=== PATIENT | female | born 1990 | race Caucasian/White ===

== ENCOUNTER 2019-08-21 05:45 | Inpatient (IN) | payer BC, SELFPAY ==
[2019-08-21] VITALS (75 sets, daily range): BP systolic 93–136; BP diastolic 40–90; PULSE 54–125; RESP 15; TEMP 36.2–37.2; O2SAT 78–100; BMI 26.6
[2019-08-21 06:34] LABS: Basophils Absolute Auto 0.1 K/mm3 (0.0-0.1); Basophils Percent Auto 0.4 % (0.2-1.2); Eosinophils Percent Auto 0.2 % (0-4.4); Hematocrit 35.1 % (37.0-47.0); Hemoglobin 11.1 g/dL (12.0-15.0); Immature Granulocyte Absolute 0.14 K/mm3 (0.00-0.031); Lymphocytes Absolute Auto 2.15 K/mm3 (0.9-3.2); Lymphocytes Percent Auto 15.9 % (18.3-44.2); Mean Corpuscular HGB Conc 31.6 g/dl (32-36); Mean Corpuscular Hemoglobin 27.3 pg (26-34); Mean Corpuscular Volume 86.5 fl (80-100); Mean Platelet Volume 11.9 fl (7.4-10.4); Monocytes Absolute Auto 0.8 K/mm3 (0.1-0.6); Monocytes Percent Auto 6.1 % (2.6-8.5); Neutrophils Absolute Auto 10.3 K/mm3 (1.3-6.7); Neutrophils Percent Auto 76.4 % (45.5-73.1); Platelet Count Result 190 k/mm3 (150-375); Red Blood Count 4.06 M/mm3 (4.2-5.4); Red Cell Distribution Width 12.5 % (11.5-14.5); White Blood Count 13.5 K/mm3 (4.5-10.0)
[2019-08-21] MEDS: OXYTOCIN 30 UNITS/NS 500 ML 30 UNITS/500 ML BAG IV CONT (06:35)
[2019-08-21] MEDS: LACTATED RINGERS 1,000 ML 125 ML IV CONT ×3 (06:35→11:10)
--- NOTE | 2019-08-21 06:44 | LDADM ---
This patient, Shara Marlow, was admitted to Labor/Delivery/Recovery 104 on 08/21/19 at 05:45. Plans for labor, pain management and were discussed with patient. Patient/family oriented to hospital policies and general routines including ID bracelet, bed and alarms, visiting hours, pain management, procedures, bathroom and other care routines, personal items, smoking policy, room service/diet and guest tray routines, security routines, and visiting hours. Patient/Family are encouraged to report perceived risks to care and to ask questions if they do not understand what they are told or what they should do. See OBIX for further documentation.
--- NOTE | 2019-08-21 08:48 | P.PNAN_ITS ---
Anes - Eval Pre Procedure Procedure: labor epidural Date/Time: 08/21/19 08:48 Surgeon: Marco Preop Diagnosis: Pain during labor Pre Op Diagnosis: Induction of Labor Patient Data Age: 29 Gender: F Height: 1.57 m Weight: 66 kg Last Vital Signs Temp 36.5 C 08/21/19 07:31 Pulse 79 08/21/19 08:46 BP 132/62 08/21/19 08:46 Pulse Ox 100 08/21/19 08:45 Allergies Allergy/AdvReac Type Severity Reaction Status Date / Time levofloxacin Allergy Unknown Palpitation Verified 08/20/19 15:34 s Home Medications Medication Instructions Recorded Confirmed Type PNV cmb#95-ferrous fumarate-FA 1 tablet PO DAILY 08/20/19 08/20/19 History [] Laboratory Tests 08/21/19 08/21/19 08/21/19 06:23 06:23 06:24 WBC 13.5 K/mm3 H K/mm3 (4.5-10.0) RBC 4.06 M/mm3 L M/mm3 (4.2-5.4) Hgb 11.1 g/dL L g/dL (12.0-15.0) Hct 35.1 % L % (37.0-47.0) MCV 86.5 fl fl (80-100) MCH 27.3 pg pg (26-34) MCHC 31.6 g/dl L g/dl (32-36) RDW 12.5 % % (11.5-14.5) Plt Count 190 k/mm3 k/mm3 (150-375) MPV 11.9 fl H fl (7.4-10.4) Immature Gran % (Auto) 1.0 % H % (0-0.5) Neut % (Auto) 76.4 % H % (45.5-73.1) Lymph % (Auto) 15.9 % L % (18.3-44.2) [place] % (Auto) 6.1 % % (2.6-8.5) Eos % (Auto) 0.2 % % (0-4.4) Baso % (Auto) 0.4 % % (0.2-1.2) Lymph # (Auto) 2.15 K/mm3 K/mm3 (0.9-3.2) [place] # (Auto) 0.8 K/mm3 H K/mm3 (0.1-0.6) Eos # (Auto) 0.0 K/mm3 K/mm3 (0-0.3) Baso # (Auto) 0.1 K/mm3 K/mm3 (0.0-0.1) Abs Immat Gran (auto) 0.14 K/mm3 H K/mm3 (0.00-0.031) Absolute Neuts (auto) 10.3 K/mm3 H K/mm3 (1.3-6.7) Absolute Nucleated RBC 0.0 K/mm3 K/mm3 (0.0-0.012) Nucleated RBC % 0.0 % % (0.0-0.2) RPR Pending Blood Type O Positive Antibody Screen Negative Patient hx anesthesia problems: none Family hx anesthesia problems: none [facility] Family History Family History (Updated 08/20/19 @ 15:37 by Miguel Brower RN) Mother Heart disease High cholesterol Hypertension History of blood clots Sibling High cholesterol Grandparent Heart disease Hypertension Cerebrovascular accident Social History Social History Smoking status: Never smoker Second hand tobacco smoke exposure: No Substance use: never Spiritual care concerns: No Exam Day of Procedure 08/21/19 08:48
[2019-08-21 08:54] LABS: Rapid Plasma Reagin Non-Reactive (NonReactive)
[2019-08-21] MEDS: SODIUM CHLORIDE 0.9% IV 300 ML 600 ML I-UTERINE (11:12)
--- NOTE | 2019-08-21 13:09 | P.PCNOB_ITS ---
OB - Delivery Note Procedure Delivery date: 08/21/19 Procedure: events: Labor Induction Intrapartal events: None Induction method: AROM and per pitocin protocol Delivery monitor: external FHT, external uterine, internal FHT and internal uterine Route of delivery: Laceration description: None Specimen: No Estimated blood loss (mL): 116 Anesthesia type: Epidural Disposition: floor [place] Baby Date of : 08/21/19 Time of : 12:58 Weeks of gestation at delivery: 39 gender: Male presentation: vertex position: Right Occiput Anterior Placenta delivery description: Spontaneous cord vessel description: 3 Vessels, Nuchal Cord, Loose, Reduced and Clamped/Cut score one minute: 9 score five minutes: 9
--- NOTE | 2019-08-21 13:14 | PM.OBDSVD ---
DS: Discharge Diagnosis Discharge Diagnosis (1) : Code(s): Z34.90 - Encounter for supervision of normal , unspecified, unspecified trimester Status: Acute OB - DS: Summary OB Procedures : None OB Procedures Intrapartum: Spontaneous Vag Delivery OB Procedures: : None Peripartum Data Delivery Method: Natural Vaginal Laceration description: None complications: none Status at Discharge Functional status at discharge: independent ambulation Overall status at discharge: patient is progressing back to baseline Time Spent with Patient Time attestation: Total time spent providing and/or coordinating discharge services: Time spent: Less than 30 minutes DS: Data Data Completed and Pending Labs on day of discharge: Labs from last 24 hours 08/21/19 08/21/19 08/21/19 06:24 06:23 06:23 WBC 13.5 H RBC 4.06 L Hgb 11.1 L Hct 35.1 L MCV 86.5 MCH 27.3 MCHC 31.6 L RDW 12.5 Plt Count 190 MPV 11.9 H Immature Gran % (Auto) 1.0 H Neut % (Auto) 76.4 H Lymph % (Auto) 15.9 L [place] % (Auto) 6.1 Eos % (Auto) 0.2 Baso % (Auto) 0.4 Lymph # (Auto) 2.15 [place] # (Auto) 0.8 H Eos # (Auto) 0.0 Baso # (Auto) 0.1 Abs Immat Gran (auto) 0.14 H Absolute Neuts (auto) 10.3 H Absolute Nucleated RBC 0.0 Nucleated RBC % 0.0 RPR Non-reactive Blood Type O Positive Antibody Screen Negative Discharge Plan Discharge Attending physician on discharge: Eunice Lara Discharging Clinician: Eunice Lara Anticipated Discharge Date/Time: 08/22/19 15:00 Patient Disposition: Home, Self-Care Activity: may shower and pelvic rest Diet: regular Discharge Instructions: Education: Mom and Baby Guide Given to: Mother Follow-Up: Call your delivering provider's office for an appointment to be seen in: 4 Weeks Mom and baby should come to the [facility] for the follow-up appointment. Appointment Date/Time: August at 10:00 am What to expect at your follow-up visit: Blood Pressure Check Physical Assessment Call [phone] if you are unable to keep your appointment time. BREAST CARE: 1. Wear a snug supportive bra. 2. For engorgement discomfort: Breast Feeding: A. Apply warm moist washcloths B. Express milk as needed to relieve engorgement C. Wear loose clothing 3. For sore nipples: A. Identify correct latch-on B. Apply warm moist washcloths before and after nursing C. Air dry nipples after nursing D. May apply Lansinoh cream to nipples EPISIOTOMY/PERINEAL CARE: 1. Until bleeding stops, use your sandra bottle after urinating 2. Change your pad frequently throughout the day 3. You may take sitz baths several times a day (fill your bathtub with warm water and soak for 20 minutes.) Do NOT bathe in the water 4. No tub baths until seen by your physician - You may shower ACTIVITY: 1. Rest as much as possible. 2. Do not exercise or lift anything heavier than your baby (such as laundry or other children.) 3. Avoid stairs or driving as much as possible. 4. Do not put anything into the vagina. No douching, tampons, or sexual activity until seen by physician. NOTIFY PHYSICIAN IF YOU HAVE ANY QUESTIONS OR IF ANY OF THE FOLLOWING SYMPTOMS OCCUR: 1. If your perineum becomes red, swollen, or more painful than what you have experienced in the hospital. 2. If your vaginal bleeding becomes foul smelling. 3. If your vaginal bleeding becomes more heavy than a period or if your bleeding changes from pink to bright red. However, you may pass an occasional walnut-sized clot once or twice for the first week . 4. If you experience a sharp, shooting pain in you calves. 5. If you discover a hard, reddened area on your breast or if you experience flu-like symptoms. DIET: 1. Ea
[2019-08-21] MEDS: OXYTOCIN 30 UNITS/NS 500 ML 30 UNITS/500 ML BAG 125 UNITS IV CONT (13:42)
[2019-08-21] MEDS: LORATADINE 10 MG TABLET PO (14:28)
[2019-08-21] MEDS: WITCH HAZEL 40 PADS 1 PAD TOPICAL (14:29)
[2019-08-21] MEDS: BENZOCAINE 20% AER SPR (*SP) 56 GM CAN 1 SPRAY TOPICAL (14:29)
--- NOTE | 2019-08-21 17:37 | OBPPTRN ---
Patient transferred to post room #295 via W/C @ [id number]. Support person present. Oriented to unit, room, information board, rooming in, admission packet and security measures. Patient verbalizes understanding.
[2019-08-21] MEDS: IBUPROFEN 600 MG TABLET PO (18:07)
[2019-08-22 05:34] LABS: Hematocrit 29.4 % (37.0-47.0); Hemoglobin 9.3 g/dL (12.0-15.0)
--- NOTE | 2019-08-22 07:25 | PM.OBPNVD ---
OB - PN: Subj Subjective Date/time seen: 08/22/19 07:25 Patient comments: no complaints baby status: doing well OB - PN: Obj Data Labs CBC & Chem 7: 08/22/19 04:51 Labs: Laboratory Results - last 24 hr 08/21/19 08/21/19 08/22/19 06:23 06:23 04:51 Hgb 9.3 L Hct 29.4 L RPR Non-reactive Blood Type O Positive Antibody Screen Negative OB - PN A/P Plan day: 1 Plan: routine care Time Spent With Patient Time: Total time spent is greater than 50% in coordination of care (as documented) at patient's floor/unit and/or counseling patient: Review of Systems Review of Systems: All systems reviewed & are unremarkable except as noted in HPI and below Exam Const: General: comfortable and alert Psych: Appearance: grossly normal Affect: normal affect Attitude: cooperative Judgement: Good judgement present (Psych)
[2019-08-22] MEDS: MULTIVIT/MIN/PREN/FOL AC/IRON TABLET 1 TAB PO (07:35)
[2019-08-22] MEDS: DOCUSATE SODIUM 100 MG CAPSULE PO (07:35)
[2019-08-22] MEDS: IBUPROFEN 600 MG TABLET PO (07:35)
[2019-08-22] MEDS: POLYSACCHARIDE IRON COMPLEX 150 MG CAPSULE PO (07:35)
[2019-08-22 08:30] VITALS: BP 127/90; PULSE 73; RESP 18; TEMP 36.6; O2SAT 98
--- NOTE | 2019-08-22 09:36 | WPDANLDPN2 ---
Anes-Prog Note L&D Date/Time: 08/22/19 09:36 Comfortable throughout: labor and delivery Neuraxial method: epidural Epidural/Spinal procedure site: clean & non-tender Neuro status: Neuro function grossly intact. Cardiovascular status: normal Respiratory status: normal Airway patency: baseline Mental status: baseline Post-Op hydration status: normal Vital Signs: Last Vital Signs Temp 37.2 C 08/21/19 20:20 Pulse 85 08/21/19 20:20 Resp 15 08/21/19 20:20 BP 112/67 08/21/19 20:20 Pulse Ox 97 08/21/19 12:52 I/O: Intake & Output 08/21/19 08/22/19 08/22/19 23:59 07:59 15:59 Output Total 98 Balance -98 Post-procedural complaints: none Patient feedback: Patient satisfied with anesthetic care.
--- NOTE | 2019-08-22 10:30 | PC.NURSE ---
Consult with pt., mother reports this to be 3rd child to breastfeed without difficulties or discomfort, last child 22 months. Mother wishes a 24 hour discharge. Mother is able to independently latch infant with appropriate positioning/alignment. She denies any nipple discomfort, is feeding as required and waking to feed if needed. has had several effective feedings in the past 24 hours, and is currently meeting outcomes for weight, output, jaundice and feeding frequencies. Mother states she feels confident to continue effective at home. Reviewed transition to breast milk, signs of adequate intake, and engorgement/relief. Instructed to call ICP if intake/output less than required. Reviewed regular medications mother is taking. Information provided per Jessica. Reviewed community resources on the [facility] website and in the Mom/Baby guide. Information on outpatient services provided. Mother has no further questions at this time.
--- NOTE | 2019-08-22 13:05 | PC.NURSE ---
8584-Patient viewed the discharge video Mother & Baby Care, The First Two Weeks . Patient was given the opportunity and encouraged to ask questions. Patient verbalized understanding of information shared and has been given the mother/baby guide for home reference.
[2019-08-23 10:26] VITALS: BP 128/86; PULSE 103; RESP 22
== END 2019-08-22 14:48 | disposition home or self-care (01) | DRG 807 ==
LOC: ANHLDR 13:15 → ANHOB2 16:22
PROVIDERS: Admitting Provider Obstetrics & Gynecology; Visit Provider Obstetrics & Gynecology
DX: O69.81X0 Labor and delivery complicated by cord around neck, without compression, not applicable or unspecified (principal); Z37.0 Single live birth; Z3A.39 39 weeks gestation of pregnancy; O36.8330 Maternal care for abnormalities of the fetal heart rate or rhythm, third trimester, not applicable or unspecified
CPT/HCPCS: 36415; 85014; 85018; 85025; 86592; 86850; 86900; 86901; A9270; J2590; J2795; J7030; J7120

== ENCOUNTER 2021-06-05 08:10 | Inpatient (IN) | payer OTHER, SELFPAY ==
[2021-06-05] VITALS (76 sets, daily range): BP systolic 96–142; BP diastolic 41–86; PULSE 25–125; TEMP 36.8–37; O2SAT 92–100
--- OUTSIDE RECORDS SUMMARY | 2021-06-05 10:40 | XMS_ITS | Encounter Summary ---
:1990 Author Care Team Providers Name Role Phone Rosario Cueto Primary Care Provider [phone] Reason for Visit None recorded. Assessment and Plan 1. Uterine size for dates discre pancy ? US, obstetric, follow-up Discussion Note: None recorded.Patient educational handouts: No information available. Plan of Care Reminders Provider Appointments Induction Belen Eldridge, 06/06/2021 CNM 5:00PM ? Blood Rosario azar CNM Pressure Check 06/16/2021 10:15AM Lab None ? ? recorded. Referral None ? ? recorded. Procedures None ? ? recorded. Surgeries None ? ? recorded. Imaging , [place] [facility], Follow-up 04/16/2021 Medications Name Start Date ? ? ? Medications Administered None recorded. Vitals None recorded. Results Lab Results None recorded. Allergies Code Code System Name Reaction Severity Onset 96126 RxNorm Levofloxacin ? ? ? Problems Name Status Onset Date Source ? Active 12/05
--- OUTSIDE RECORDS SUMMARY | 2021-06-05 10:40 | XMS_ITS | Encounter Summary ---
:1990 Author Care Team Providers Name Role Phone Rosario Cueto Primary Care Provider [phone] Reason for Visit None recorded. Assessment and Plan 1. Reduced movement ? non-stress test Discussion Note: None recorded.Patient educational handouts: No information available. Plan of Care Reminders Provider Appointments Induction Belen Eldridge, 06/06/2021 CNM 5:00PM ? Blood Rosario azar CNM Pressure Check 06/16/2021 10:15AM Lab None ? ? recorded. Referral None ? ? recorded. Procedures None ? ? recorded. Surgeries None ? ? recorded. Imaging Non-stress [place] Test 06/02/2021 Medications Name Start Date ? ? ? Medications Administered None recorded. Vitals None recorded. Results Lab Results None recorded. Allergies Code Code System Name Reaction Severity Onset 71916 RxNorm Levofloxacin ? ? ? Problems Name Status Onset Date Source ? Active 12/16/2020 ?
--- OUTSIDE RECORDS SUMMARY | 2021-06-05 10:40 | XMS_ITS ---
:1990 Author Care Team Providers Name Role Phone NELY MAO Primary Care Provider [phone] Allergies Code Code System Name Reaction Severity Status Onset 17435 RxNorm Levofloxacin ? ? Active ? Medications Name Status Start Date Stop Date ? ? azithromycin 250 mg tablet Completed ? 06/26 Jennifer 0.35 mg tablet Completed 11/02/2017 01/25/2019 take 1 tablet by oral route every day ID NOW COVID-19 Test Kit Completed ? 021 TEST DIRECTED Macrobid 100 mg capsule Completed ? 04/10/19 Take 1 capsule every 12 hours by oral route. methylprednisolone 4 mg tablets in Completed ? 06/27/2019 a dose pack Minastrin 24 Fe 1 mg-20 mcg (24)/75 mg (4) chewable tablet Compl eted 11/06/2013 02/24/2017 CHEW 1 TABLET BY ORAL ROUTE ONCE DAILY ondansetron 4 mg disintegrating Completed ? 04/10/2021 tablet Zofran 4 mg tablet Active 03/29/2019 Not available Take one tablet by oral route every 6-8 hours as needed for kasi sea Active ? Not available 19 29 mg iron-1 mg chewable tablet Completed ? 11/19/2020 chew 1 tablet by oral route every day promethazine 12.5 mg tablet Completed 03/09/201710/06 take 1 tablet by oral route 4 times every day before meals and at bedtime Seasonique 0.15 mg-30 mcg (84)/10 mcg(7) tablets,3 month dos e pack Completed 12/16/2011 12/27/2012 take 1 tablet by oral route every day Triveen-Duo DHA 29 mg-1 mg-400 mg oral pack Completed 11/0506/23/2011 take 2 by Oral route every day
--- OUTSIDE RECORDS SUMMARY | 2021-06-05 10:40 | XMS_ITS | Encounter Summary ---
:1990 Author Care Team Providers Name Role Phone Rosario Cueto Primary Care Provider [phone] Reason for Visit None recorded. Assessment and [...] Surgeries None ? ? recorded. Imaging , [place] Obstetric, Follow-up 06/02/2021 Medications Name Start Date ? ? ? Medications Administered None recorded. Vitals None recorded. Results Lab Results None recorded. Allergies Code Code System Name Reaction Severity Onset 75821 RxNorm Levofloxacin ? ? ? Problems Name Status Onset Date Source ? Active 12/16
--- OUTSIDE RECORDS SUMMARY | 2021-06-05 10:40 | XMS_ITS | Encounter Summary ---
:1990 Author Care Team Providers Name Role Phone Rosario Cueto Primary Care Provider [phone] Reason for Visit OB visit OB [id number] EDC 06/27/2021 LMP 09/20/2020 Assessment and Plan Assessment Note Patient is __30_weeks . Dis cussed plan. 1. Routine care Discussion Note: None recorded.Patient educational handouts: No information available. Plan of Care Reminders Provider Appointments Induction Belen Eldridge, 06/06/2021 CNM 5:00PM ? Blood Rosario azar CNM Pressure Check 06/16/2021 10:15AM Lab None ? ? recorded. Referral None ? ? recorded. Procedures None ? ? recorded. Surgeries None ? ? recorded. Imaging None ? ? recorded. Medications Name Start Date ? ? ? Medications Administered None recorded. Vitals Height Weight BMI Blood Pressure 5 ft 2.5 in 143 lbs 25.7 kg/m2 133/81 mm[Hg] Results Lab Results None recorded. Allergies Code Code System Name Reaction Severity Onset 55702 RxNorm Levofloxacin ? ? ?
--- OUTSIDE RECORDS SUMMARY | 2021-06-05 10:40 | XMS_ITS | Encounter Summary ---
:1990 Author Care Team Providers Name Role Phone Rosario Cueto Primary Care Provider [phone] Reason for Visit None recorded. Assessment and [...] ? recorded. Imaging Non-stress [place] Test 06/03/2021 Medications Name Start Date ? ? ? Medications Administered None recorded. Vitals None recorded. Results Lab Results None recorded. Allergies Code Code System Name Reaction Severity Onset 87353 RxNorm Levofloxacin ? ? ? Problems Name Status Onset Date Source ? Active 12/16/2020 ?
--- OUTSIDE RECORDS SUMMARY | 2021-06-05 10:40 | XMS_ITS | Encounter Summary ---
:1990 Author Care Team Providers Name Role Phone Rosario Cueto Primary Care Provider [phone] Reason for Visit None recorded. Assessment and Plan 1. Uterine size for dates discre pancy Discussion Note: None recorded.Patient educational handouts: No [...] Code Code System Name Reaction Severity Onset 96953 RxNorm Levofloxacin ? ? ? Problems Name Status Onset Date Source ? Active 12/16/2020 ? Vomiting of Active ? ? Uterine Size for Dates Discrepancy Active ?
--- OUTSIDE RECORDS SUMMARY | 2021-06-05 10:40 | XMS_ITS | Encounter Summary ---
:1990 Author Care Team Providers Name Role Phone Rosario Rom Primary Care Provider [phone] Reason for Visit OB visit Assessment and Plan 1. Routine care Discussion Note: None recorded.Patient [...] BMI Blood Pressure 5 ft 2.5 in 146 lbs 26.3 kg/m2 126/83 mm[Hg] Results Lab Results None recorded. Allergies Code Code System Name Reaction Severity Onset 74874 RxNorm Levofloxacin ? ? ? Problems Name Status Onset Date Source ? Active 12/16/2020 ?
--- OUTSIDE RECORDS SUMMARY | 2021-06-05 10:40 | XMS_ITS | Encounter Summary ---
:1990 Author Care Team Providers Name Role Phone Rosario Cueto Primary Care Provider [phone] Reason for Visit OB visit Assessment and Plan 1. Uterine size for dates discre pancy 2. History of pre-eclampsia Discussion Note: None recorded.Patient educational handouts: No [...] BMI Blood Pressure 5 ft 2.5 in 149 lbs 26.8 kg/m2 127/78 mm[Hg] Results Lab Results None recorded. Allergies Code Code System Name Reaction Severity Onset 86440 RxNorm Levofloxacin ? ? ? Problems Name Status Onset Date Source ?
--- OUTSIDE RECORDS SUMMARY | 2021-06-05 10:40 | XMS_ITS | Encounter Summary ---
:1990 Author Care Team Providers Name Role Phone Rosario Cueto Primary Care Provider [phone] Reason for Visit None recorded. Assessment and Plan 1. condition affecting obs tetrical care of mother ? US, obstetric, biophysical profile + non-stress test Discussion Note: None recorded.Patient educational handouts: No information available. Plan of Care Reminders Provider Appointments Induction Belen Eldridge, 06/06/2021 CNM 5:00PM ? Blood Pressure Mone Cueto CNM Check 06/16/2021 10:15AM Lab None recorded. ? ? Referral None recorded. ? ? Procedures None recorded. ? ? Surgeries None recorded. ? ? Imaging US, Obstetric, [facility] Biophysical Profile + 06/03/2021 Non-stress Test Medications Name Start Date ? ? ? Medications Administered None recorded. Vitals None recorded. Results Lab Results None recorded. Allergies Code Code System Name Reaction Severity Onset 45996 RxNorm Levofloxacin ? ? ? Problems Name Statu
--- OUTSIDE RECORDS SUMMARY | 2021-06-05 10:40 | XMS_ITS | Encounter Summary ---
:1990 Author Care Team Providers Name Role Phone Rosario Rom Primary Care Provider [phone] Reason for Visit OB visit Assessment and Plan 1. History of pre-eclampsia 2. Routine care Discussion Note: None recorded.Patient educational [...] BMI Blood Pressure 5 ft 2.5 in 137 lbs 24.7 kg/m2 (1) 150/78 mm[H g] (2) 132/80 mm[Hg ] Results Lab Results None recorded. Allergies Code Code System Name Reaction Severity Onset 38538 RxNorm Levofloxacin ? ? ? Problems Name Status Onset Date
--- OUTSIDE RECORDS SUMMARY | 2021-06-05 10:40 | XMS_ITS | Encounter Summary ---
:1990 Author Care Team Providers Name Role Phone Rosario Rom Primary Care Provider [phone] Reason for Visit OB visit Assessment and [...] BMI Blood Pressure 5 ft 2.5 in 145 lbs 26.1 kg/m2 121/78 mm[Hg] Results Lab Results None recorded. Allergies Code Code System Name Reaction Severity Onset 51415 RxNorm Levofloxacin ? ? ? Problems Name Status Onset Date Source ? Active 12/16/2020 ?
--- OUTSIDE RECORDS SUMMARY | 2021-06-05 10:40 | XMS_ITS | Encounter Summary ---
:1990 Author Care Team Providers Name Role Phone Rosario Cueto Primary Care Provider [phone] Reason for Visit OB visit 28w6d Assessment and Plan 1. Routine care Discussion [...] ft 2.5 in 143 lbs 25.7 kg/m2 133/85 mm[Hg] Results Lab Results None recorded. Allergies Code Code System Name Reaction Severity Onset 50199 RxNorm Levofloxacin ? ? ? Problems Name Status Onset Date Source ? [place]
--- NOTE | 2021-06-05 13:03 | LDADM ---
This patient, Shara Marlow, was admitted to Labor/Delivery/Recovery 108 on 06/05/21 at 08:10. Plans for labor, pain management and were discussed with patient. Patient/family oriented to hospital policies and general routines including ID bracelet, bed and alarms, visiting hours, pain management, procedures, bathroom and other care routines, personal items, smoking policy, room service/diet and guest tray routines, security routines, and visiting hours. Patient/Family are encouraged to report perceived risks to care and to ask questions if they do not understand what they are told or what they should do. See OBIX for further documentation.
[2021-06-05 13:15] LABS: Basophils Percent Auto 0.3 % (0.2-1.2); Eosinophils Percent Auto 0.1 % (0-4.4); Hematocrit 32.1 % (37.0-47.0); Hemoglobin 10.2 g/dL (12.0-15.0); Immature Granulocyte Absolute 0.09 K/mm3 (0.00-0.031); Immature Granulocyte Percent A 0.6 % (0-0.5); Lymphocytes Absolute Auto 2.54 K/mm3 (0.9-3.2); Lymphocytes Percent Auto 16.5 % (18.3-44.2); Mean Corpuscular HGB Conc 31.8 g/dl (32-36); Mean Corpuscular Hemoglobin 26.9 pg (26-34); Mean Corpuscular Volume 84.7 fl (80-100); Mean Platelet Volume 11.5 fl (7.4-10.4); Monocytes Absolute Auto 0.7 K/mm3 (0.1-0.6); Monocytes Percent Auto 4.3 % (2.6-8.5); Neutrophils Absolute Auto 12.1 K/mm3 (1.3-6.7); Neutrophils Percent Auto 78.2 % (45.5-73.1); Platelet Count Result 230 k/mm3 (150-375); Red Blood Count 3.79 M/mm3 (4.2-5.4); Red Cell Distribution Width 13.7 % (11.5-14.5); White Blood Count 15.4 K/mm3 (4.5-10.0)
[2021-06-05 13:34] LABS: Alanine Aminotransferase 12 U/L (4-35); Albumin Level 3.7 g/dL (3.5-5.1); Alkaline Phosphatase 176 U/L (38-126); Anion Gap 7 mmol/L (8-16); Aspartate Amino Transferase 24 U/L (14-36); Bilirubin,Total 0.5 mg/dL (0.2-1.3); Blood Urea Nitrogen 3 mg/dL (7-17); Calcium 8.4 mg/dL (8.4-10.2); Carbon Dioxide 22 mmol/L (22-30); Chloride 105 mmol/L (98-107); Estimated Glomerular Filt Rate > 60; Glucose 84 mg/dL (65-110); Potassium 3.6 mmol/L (3.4-5.0); Sodium 134 mmol/L (137-145); Uric Acid 3.4 mg/dL (2.5-7.5)
--- NOTE | 2021-06-05 15:17 | WPDANESEPP ---
Anes - Eval Pre Procedure Procedure: labor epidural Date/Time: 06/05/21 15:17 Surgeon: amanda Preop Diagnosis: pain during labor Pre Op Diagnosis: Induction of Labor Patient Data Age: 31 Gender: F Height: Weight: Last Vital Signs Temp 36.8 C 06/05/21 12:00 Pulse 99 06/05/21 11:53 BP 116/72 06/05/21 11:53 Pulse Ox 98 06/05/21 12:57 Allergies Allergy/AdvReac Type Severity Reaction Status Date / Time levofloxacin Allergy Unknown Palpitation Verified 08/20/19 15:34 s Home Medications Medication Instructions Recorded Confirmed Type PNV cmb#95-ferrous fumarate-FA 1 tablet PO DAILY 08/20/19 06/05/21 History [] Laboratory Tests 06/05/21 06/05/21 06/05/21 13:01 13:01 13:01 WBC 15.4 K/mm3 H K/mm3 (4.5-10.0) RBC 3.79 M/mm3 L M/mm3 (4.2-5.4) Hgb 10.2 g/dL L g/dL (12.0-15.0) Hct 32.1 % L % (37.0-47.0) MCV 84.7 fl fl (80-100) MCH 26.9 pg pg (26-34) MCHC 31.8 g/dl L g/dl (32-36) RDW 13.7 % % (11.5-14.5) Plt Count 230 k/mm3 k/mm3 (150-375) MPV 11.5 fl H fl (7.4-10.4) Immature Gran % (Auto) 0.6 % H % (0-0.5) Neut % (Auto) 78.2 % H % (45.5-73.1) Lymph % (Auto) 16.5 % L % (18.3-44.2) [place] % (Auto) 4.3 % % (2.6-8.5) Eos % (Auto) 0.1 % % (0-4.4) Baso % (Auto) 0.3 % % (0.2-1.2) Lymph # (Auto) 2.54 K/mm3 K/mm3 (0.9-3.2) [place] # (Auto) 0.7 K/mm3 H K/mm3 (0.1-0.6) Eos # (Auto) 0.0 K/mm3 K/mm3 (0-0.3) Baso # (Auto) 0.0 K/mm3 K/mm3 (0.0-0.1) Abs Immat Gran (auto) 0.09 K/mm3 H K/mm3 (0.00-0.031) Absolute Neuts (auto) 12.1 K/mm3 H K/mm3 (1.3-6.7) Absolute Nucleated RBC 0.0 K/mm3 K/mm3 (0.0-0.012) Nucleated RBC % 0.0 % % (0.0-0.2) Sodium Potassium Chloride Carbon Dioxide Anion Gap BUN Creatinine Estim Creat Clear Calc Estimated GFR Glucose Uric Acid Calcium Total Bilirubin AST ALT Alkaline Phosphatase Total Protein Albumin RPR Pending Blood Type O Positive Antibody Screen Negative 06/05/21 13:01 WBC RBC Hgb Hct MCV MCH MCHC RDW Plt Count MPV Immature Gran % (Auto) Neut % (Auto) Lymph % (Auto) [place] % (Auto) Eos % (Auto) Baso % (Auto) Lymph # (Auto) [place] # (Auto) Eos # (Auto) Baso # (Auto) Abs Immat Gran (auto) Absolute Neuts (auto) Absolute Nucleated RBC Nucleated RBC % Sodium 134 mmol/L L mmol/L (137-145) Potassium 3.6 mmol/L mmol/L (3.4-5.0) Chloride 105 mmol/L mmol/L (98-107) Carbon Dioxide 22 mmol/L mmol/L (22-30) Anion Gap 7 mmol/L L mmol/L (8-16) BUN 3 mg/dL L mg/dL (7-17) Creatinine 0.40 mg/dL L mg/dL (0.7-1.0) Estim Creat Clear Calc Not Reportable Estimated GFR > 60 (59 - ) Glucose 84 mg/dL mg/dL (65-110) Uric Acid 3.4 mg/dL mg/dL (2.5-7.5) Calcium 8.4 mg/dL mg/dL (8.4-10.2) Total Bilirubin 0.5 mg/dL mg/dL (0.2-1.3) AST 24 U/L U/L (14-36) ALT 12 U/L U/L (4-35) Alkaline Phosphatase 176 U/L H U/L (38-126) Total Protein 8.0 g/dL g/dL (6.3-8.2) Albumin 3.7 g/dL g/dL (3.5-5.1) RPR Blood Type Antibody Screen Patient hx anesthesia problems: none Family hx anesthesia problems: none Results Review: All pre-operative results and documents have been reviewed as part of the pre-operative evaluation. [facility] Family History Family History (Updated 06/03/21 @ 12:43 by Oanh
--- NOTE | 2021-06-05 16:30 | WPDOBADMIT ---
Obstetrics - Admit Note Admission Note: record reviewed. No pertinent additions to the history and/or any subsequent changes in the physical findings that are not consistent with the expected course of the were found. IOL, nonreassuring heart tones, recurretn variables, hx gestational HTN, SVE 1/70/-2 AROM minimal amount of clear odorless fluid Additions to the history and/or subsequent changes in the physical findings follow. None.
[2021-06-05] MEDS: LACTATED RINGERS 1,000 ML 125 ML IV CONT (18:15)
[2021-06-05] MEDS: OXYTOCIN 30 UNITS/NS 500 ML 30 UNITS/500 ML BAG IV CONT (18:15)
[2021-06-06] VITALS (66 sets, daily range): BP systolic 85–129; BP diastolic 37–92; PULSE 25–125; RESP 16; TEMP 36–37.4; O2SAT 78–100
--- NOTE | 2021-06-06 05:18 | PM.OBPRVD ---
OB - Delivery Note Procedure Delivery date: 06/06/21 Procedure: vaginal delivery Events: Gestational Hypertension and Other (non reassuring FHR) Induction method: None, AROM and Per Pitocin Protocol Delivery monitor: External FHT, External Uterine and Internal Uterine Route of delivery: Laceration Description: None Specimen: Yes Quantitative Blood Loss (ml): 30 Anesthesia type: Epidural Disposition: Floor [place] Baby Date of : 06/06/21 Time of : 05:05 Weeks of gestation at delivery: 37 gender: Female presentation: vertex position: Left Occiput Anterior Placenta delivery description: Spontaneous Cord Vessel Description: 3 Vessels, Nuchal Cord, Loose, Reduced, Clamped/Cut and Delayed Cord Clamping score one minute: 9 score five minutes: 9 Narrative: mother and baby skin to skin in stable condition
[2021-06-06] MEDS: WITCH HAZEL 40 PADS 1 PAD TOPICAL (07:09)
[2021-06-06] MEDS: IBUPROFEN 600 MG TABLET PO ×2 (07:09→10:49)
[2021-06-06] MEDS: MULTIVIT/MIN/PREN/FOL AC/IRON TABLET 1 TAB PO (10:48)
--- NOTE | 2021-06-06 12:07 | OBPPTRN ---
0830-Patient transferred to post room #285 via wheelchair. Support person present. Oriented to unit, room, information board, rooming in, admission packet and security measures. Patient verbalizes understanding.
[2021-06-07 00:10] VITALS: BP 117/73; PULSE 79; RESP 16; TEMP 36.1; O2SAT 100
[2021-06-07 04:10] VITALS: BP 111/62; PULSE 70; RESP 16; TEMP 36.9; O2SAT 100
[2021-06-07 04:55] LABS: Hematocrit 28.2 % (37.0-47.0); Hemoglobin 8.9 g/dL (12.0-15.0)
--- NOTE | 2021-06-07 07:41 | PM.OBPNVD ---
OB - PN: Subj Subjective Date/time seen: 06/07/21 07:41 Patient comments: no complaints baby status: doing well OB - PN: Obj Data Labs CBC & Chem 7: 06/07/21 04:17 06/05/21 13:01 Labs: Laboratory Results - last 24 hr 06/07/21 04:17 Hgb 8.9 L Hct 28.2 L OB - PN A/P Plan day: 1 Plan: routine care and discharge home Time Spent With Patient Time: Total time spent is greater than 50% in coordination of care (as documented) at patient's floor/unit and/or counseling patient: Review of Systems Review of Systems: All systems reviewed & are unremarkable except as noted in HPI and below Exam Const: General: cooperative, healthy appearing, comfortable and no acute distress
--- NOTE | 2021-06-07 07:42 | PM.OBDSVD ---
DS: Admitting Diagnosis Discharge Date 06/07/21 Admitting Diagnosis Non reassuring heart rate, GHTN OB - DS: Summary OB Procedures : NST OB Procedures Intrapartum: Spontaneous Vag Delivery OB Procedures: : None Time Spent with Patient Time attestation: Total time spent providing and/or coordinating discharge services: DS: Data Data Completed and Pending Labs on day of discharge: Labs from last 24 hours 06/07/21 04:17 Hgb 8.9 L Hct 28.2 L Discharge Plan Discharge Attending physician on discharge: Berto Chew Discharging Clinician: Belen Eldridge Patient Disposition: Home, Self-Care Activity: pelvic rest Diet: regular Patient Instructions: Antibiotic Form Stand Alone Forms: General Discharge Information Follow-up/Referrals: Belen Eldridge CNM [Primary Care Provider] - 4 Weeks Discharge Medications: Continued PNV cmb#95-ferrous fumarate-FA [] 28 mg iron- 800 mcg Tablet 1 tablet PO DAILY RF: 0 Date of admission: 06/05/21 08:10 Primary Care Provider: Belen Eldridge Admitting Provider: Berto Chew Attending physician on admission: Berto Chew Condition: Stable
[2021-06-07 08:00] VITALS: BP 108/73; PULSE 88; RESP 16; TEMP 36.6; O2SAT 100
[2021-06-07] MEDS: IBUPROFEN 600 MG TABLET PO (08:57)
[2021-06-07] MEDS: MULTIVIT/MIN/PREN/FOL AC/IRON TABLET 1 TAB PO (08:58)
[2021-06-07] MEDS: DOCUSATE SODIUM 100 MG CAPSULE PO ×2 (08:58→17:56)
[2021-06-07] MEDS: POLYSACCHARIDE IRON COMPLEX 150 MG CAPSULE PO ×2 (08:59→17:55)
[2021-06-07 12:30] VITALS: BP 120/76; PULSE 84; RESP 16; TEMP 36.7; O2SAT 100
[2021-06-07 13:03] LABS: Rapid Plasma Reagin Non-Reactive (NonReactive)
[2021-06-07 16:25] VITALS: BP 122/78; PULSE 82; RESP 16; TEMP 36.8; O2SAT 99
[2021-06-07 18:45] VITALS: BP 124/68; PULSE 82; RESP 16; TEMP 36.3; O2SAT 100
--- NOTE | 2021-06-08 07:39 | PM.OBPNVD ---
OB - PN: Subj Subjective Date/time seen: 06/08/21 07:39 Patient comments: no complaints, pain well controlled, incisional pain, tolerating diet and flatus present OB - PN: Obj Data Labs CBC & Chem 7: 06/07/21 04:17 06/05/21 13:01 Labs: Laboratory Results - last 24 hr 06/05/21 13:01 RPR Non-reactive OB - PN A/P Plan day: 1 Plan: routine care Comments: No problems, routine care Time Spent With Patient Time: Total time spent is greater than 50% in coordination of care (as documented) at patient's floor/unit and/or counseling patient: Exam Const: General: comfortable, no acute distress and alert Resp: Effort & Inspection: normal respiratory effort Auscultation: no crackles, no rales and no rhonchi Cardio: Rate: regular rate Heart sounds: no click, no murmurs and no rubs GI: Inspection: non-distended GI Palp: No Tenderness to palpation present (GI) Auscultation: normal bowel sounds Other: Incision - CDI Extrem: General: normal to inspection, no pedal edema and no calf tenderness
[2021-06-08 07:45] VITALS: BP 113/66; PULSE 73; RESP 16; TEMP 36.3; O2SAT 100
[2021-06-08] MEDS: POLYSACCHARIDE IRON COMPLEX 150 MG CAPSULE PO (08:19)
[2021-06-08] MEDS: DOCUSATE SODIUM 100 MG CAPSULE PO (08:19)
[2021-06-08] MEDS: MULTIVIT/MIN/PREN/FOL AC/IRON TABLET 1 TAB PO (08:19)
--- NOTE | 2021-06-08 11:04 | PC.NURSE ---
Patient was given the opportunity to view the discharge video Mother & Baby Care, The First Two Weeks and to ask questions. Patient declined viewing the video and has been given the mother/baby guide for home reference.
--- NOTE | 2021-06-08 12:24 | PC.NURSE ---
[id number] Introductions were made and mother led the conversation with regards to her experience feeding her baby and she shares her past experience and knowledge with and it is all appropriate. has had appropriate feedings in the past 24 hours and meets the outcomes for weight, output and jaundice. Mother states she feels confident to continue effectively her at home. Reviewed production of human milk, transition of milk, signs of adequate intake and engorgement prevention/relief and when to call the care provider using the mom and baby guide. Reviewed community resources and outpatient services as listed in the mom and baby guide/[facility] website. Reinforced watching for feeding cues with responsive feeding and how to stimulate infant to initiate feeding three hours from the start of the last feeding. Mother voiced understanding of information shared. Reported to primary RN.
[2021-06-09 10:27] VITALS: BP 128/71; PULSE 84; RESP 16; TEMP 37.3; O2SAT 99
--- NOTE | 2021-06-09 18:10 | P.DS_ITS ---
DS: Admitting Diagnosis Discharge Date 06/08/21 Admitting Diagnosis IOL OB - DS: Summary OB Procedures : PIH Mgmt OB Procedures Intrapartum: Spontaneous Vag Delivery OB Procedures: : None Time Spent with Patient Time attestation: Total time spent providing and/or coordinating discharge services: DS: Data Data Completed and Pending Completed studies during hospitalization: Pending at discharge 06/08/21 08:11 Surgical [PTH] Routine Discharge Plan Discharge Attending physician on discharge: Berto Chew Consulting providers: Belen Eldridge Discharging Clinician: Belen Eldridge Patient Disposition: Home, Self-Care Activity: pelvic rest Diet: regular Discharge Instructions: Education: Mom and Baby Guide Given to: Mother Follow-Up: Call your delivering provider's office for an appointment to be seen in: 1 Week Mom and baby should come to the [facility] for the follow-up appointment. Appointment Date/Time: June 09, 2021 at 10:00 am What to expect at your follow-up visit: Call [phone] if you are unable to keep your appointment time. BREAST CARE: * Wear a snug supportive bra. * For engorgement discomfort: Breast Feeding: * Apply warm moist washcloths * Express milk as needed to relieve engorgement * Wear loose clothing * For sore nipples: * Identify correct latch-on * Apply warm moist washcloths before and after nursing * Air dry nipples after nursing * May apply Lansinoh cream to nipples PERINEAL CARE: * Until bleeding stops, use your sandra bottle after urinating * Change your pad frequently throughout the day * You may take sitz baths several times a day (fill your bathtub with warm water and soak for 20 minutes.) Do NOT bathe in the water * No tub baths until seen by your physician - You may shower ACTIVITY: * Rest as much as possible. * Do not exercise or lift anything heavier than your baby (such as laundry or other children.) * Avoid stairs or driving as much as possible. * Do not put anything into the vagina. No douching, tampons, or sexual activity until seen by physician. NOTIFY PHYSICIAN IF YOU HAVE ANY QUESTIONS OR IF ANY OF THE FOLLOWING SYMPTOMS OCCUR: * If your vaginal bleeding becomes foul smelling. * If your vaginal bleeding becomes more heavy than a period or if your bleeding changes from pink to bright red. However, you may pass an occasional walnut- sized clot once or twice for the first week . * If you experience a sharp, shooting pain in you calves. * If you discover a hard, reddened area on your breast or if you experience flu- like symptoms. DIET: * Eat regular, well-balanced meals. * Drink plenty of fluids daily. If , drink to thirst. Stand Alone Forms: General Discharge Information Follow-up/Referrals: Belen Eldridge CNM [Primary Care Provider] - 4 Weeks Discharge Medications: Continued PNV cmb#95-ferrous fumarate-FA [] 28 mg iron- 800 mcg Tablet 1 tablet PO DAILY RF: 0 Date of admission: 06/05/21 08:10 Primary Care Provider: Belen Eldridge Admitting Provider: Berto Chew Attending physician on admission: Berto Chew Condition: Stable
== END 2021-06-08 10:59 | disposition home or self-care (01) | DRG 807 ==
LOC: ANHLDR 10:39 → ANHOB2 06-06 11:00
PROVIDERS: Admitting Provider Obstetrics & Gynecology; PCP Advanced Practice Midwife; Visit Provider Obstetrics & Gynecology
DX: O13.4 Gestational [pregnancy-induced] hypertension without significant proteinuria, complicating childbirth (principal); Z37.0 Single live birth; Z3A.37 37 weeks gestation of pregnancy; O36.8330 Maternal care for abnormalities of the fetal heart rate or rhythm, third trimester, not applicable or unspecified; O69.81X0 Labor and delivery complicated by cord around neck, without compression, not applicable or unspecified
CPT/HCPCS: 36415; 76815; 76819; 80053; 84550; 85014; 85018; 85025; 86592; 86850; 86900; 86901; 88307; A9270; J2590; J2795; J7120

== ENCOUNTER 2021-06-05 08:10 | Outpatient (RCR) | payer OTHER, SELFPAY ==
[2021-06-02 12:26] VITALS: BP 131/88; PULSE 86
--- NOTE | ~2021-06-05 | US_ITS ---
EXAMINATION: US OB limited w BPP DATE: 06/05/2021 10:01 INDICATION: Variable cardiac decelerations. Assess amniotic fluid index and biophysical profile . TECHNIQUE: Real-time pelvic ultrasound was performed. The interpreting radiologist was not present fo r the study. COMPARISON: None. FINDINGS: There is a single living fetus in vertex presentation. The placenta is anterior. heart rate is 153 beats per minute (bpm). Normal amniotic fluid index measuring 4.8 cm (5th%-95%: 7.7-24.9 cm at 3 6 weeks estimated gestational age) Biophysical profile performed by the technologist: breathing (30 sec sustained breathing in 30 minutes): 2 out of 2 movement (3 gross body movements in 30 minutes): 2 out of 2 tone (one episode of kaasqma-xnpgvyhfu-fcnxqei limb movement): 2 out of 2 Amniotic fluid pocket (2 cm): 2 out of 2 Total score: 8 out of 8 IMPRESSION: 1. Single living fetus in vertex presentation with heart rate of 153 bpm. 2. Biophysical profile 8 out of 8. 3. Normal amniotic fluid index of 12.8 cm. Reviewed, dictated and finalized at location A.
== END 2021-06-05 12:02 | disposition home or self-care (01) ==
LOC: ANHOBOP 08:10
PROVIDERS: Visit Provider Obstetrics & Gynecology
DX: O36.8190 Decreased fetal movements, unspecified trimester, not applicable or unspecified (principal); O16.3 Unspecified maternal hypertension, third trimester; Z3A.36 36 weeks gestation of pregnancy
CPT/HCPCS: 59025; 76815; 76819